=== PATIENT | female | born 1975 | race Caucasian/White ===

== ENCOUNTER 2021-10-19 14:35 | Emergency (ER) | payer MEDICAID | END 2021-10-19 15:25 | disposition home or self-care (01) | LOC: CC.ED 14:35 | DX: S93.401A Sprain of unspecified ligament of right ankle, initial encounter (principal); Z91.030 Bee allergy status; Z88.2 Allergy status to sulfonamides; Y04.0XXA Assault by unarmed brawl or fight, initial encounter | CPT/HCPCS: 73610-RT; 99283 ==

== ENCOUNTER 2021-12-28 13:47 | Emergency (ER) | payer MEDICAID ==
[2021-12-28] MEDS ORDERED: Aspirin 81 MG Tab.Chew PO ONE (13:51)
[2021-12-28 14:19] LABS: CHLORIDE,CL 106 mEq/L (98-106); SODIUM,NA 143 mEq/L (136-145)
[2021-12-28 14:21] LABS: ESTIMATED GFR 70 mL/min (>=60)
[2021-12-28 14:26] LABS: PTT,PARTIAL THROMBOPLSTIN TIME 25.2 SEC (23.2-32.3)
[2021-12-28] MEDS ORDERED: Ketorolac 30 MG/ML SDV IM ONE (14:34)
== END 2021-12-28 16:00 | disposition home or self-care (01) ==
LOC: CC.ED 13:47
DX: M94.0 Chondrocostal junction syndrome [Tietze] (principal); I10 Essential (primary) hypertension; Z72.0 Tobacco use; Z88.2 Allergy status to sulfonamides; Z91.030 Bee allergy status; Z20.822 Contact with and (suspected) exposure to COVID-19
CPT/HCPCS: 36415; 71046; 80053; 83690; 84484; 85025; 85610; 85730; 93005; 93010; 96372; 99284; 99285; A9270-GY; J1885; U0002

== ENCOUNTER 2022-02-13 18:08 | Emergency (ER) | payer MEDICAID ==
[2022-02-13] MEDS ORDERED: Aspirin 81 MG Tab.Chew PO ONE (18:12)
[2022-02-13 19:05] LABS: CHLORIDE,CL 103 mEq/L (98-106); SODIUM,NA 142 mEq/L (136-145)
[2022-02-13 19:07] LABS: ESTIMATED GFR 43 mL/min (>=60)
[2022-02-13] MEDS ORDERED: Iopamidol 755 Mg/ML 100 ML Bottle IVPUSH ONE (19:22)
[2022-02-13] MEDS ORDERED: Sodium Chloride 0.9% 1,000 ML IV ONE (19:32)
== END 2022-02-13 22:15 | disposition home or self-care (01) ==
LOC: CC.ED 18:08
DX: R07.89 Other chest pain (principal); E86.0 Dehydration; Z88.2 Allergy status to sulfonamides; Z91.030 Bee allergy status; Z20.822 Contact with and (suspected) exposure to COVID-19
CPT/HCPCS: 36415; 71046; 71275; 80053; 81001; 83735; 84484; 85025; 85379; 85730; 86140; 87804; 93005; 93010; 96360; 99284; 99285-25; A9270-GY; J7030; Q9967; U0002

== ENCOUNTER 2022-03-15 07:32 | Emergency (ER) | payer MEDICAID ==
[2022-03-15] MEDS ORDERED: predniSONE 20 MG Tab PO ONE (08:04)
== END 2022-03-15 08:40 | disposition home or self-care (01) ==
LOC: CC.ED 07:32
DX: J40 Bronchitis, not specified as acute or chronic (principal); B34.9 Viral infection, unspecified; I10 Essential (primary) hypertension; Z88.2 Allergy status to sulfonamides; Z91.030 Bee allergy status; Z79.899 Other long term (current) drug therapy; Z90.710 Acquired absence of both cervix and uterus; Z20.822 Contact with and (suspected) exposure to COVID-19
CPT/HCPCS: 87804; 99283; J7512; U0002

== ENCOUNTER 2022-06-12 02:19 | Emergency (ER) | payer MEDICAID ==
[2022-06-12] MEDS ORDERED: diphenhydrAMINE 25 MG Cap PO ONE (02:46)
[2022-06-12] MEDS ORDERED: Famotidine 20 MG Tab PO STA (02:47)
== END 2022-06-12 03:21 | disposition home or self-care (01) ==
LOC: CC.ED 02:19
DX: L50.0 Allergic urticaria (principal); I10 Essential (primary) hypertension; Z72.0 Tobacco use; Z88.8 Allergy status to other drugs, medicaments and biological substances; Z88.2 Allergy status to sulfonamides; Z91.030 Bee allergy status
CPT/HCPCS: 99283; A9270

== ENCOUNTER 2022-06-30 19:24 | Emergency (ER) | payer MEDICAID | END 2022-06-30 20:00 | disposition home or self-care (01) | LOC: CC.ED 19:24 | DX: Z02.89 Encounter for other administrative examinations (principal); I10 Essential (primary) hypertension; Z88.2 Allergy status to sulfonamides; Z91.030 Bee allergy status; Z88.8 Allergy status to other drugs, medicaments and biological substances | CPT/HCPCS: 99283 ==